=== PATIENT | female | born 1955 | race Caucasian/White ===

== ENCOUNTER 2021-01-09 15:46 | Emergency (ER) | payer SELFPAY ==
[2021-01-09 15:57] VITALS: BP 143/87; PULSE 100; RESP 16; TEMP 37.1; O2SAT 99
--- NOTE | 2021-01-09 16:25 | ED.WOUNDLAC ---
HPI - Wound/Laceration General Chief Complaint: Burn/Smoke Inhalation Stated Complaint: blister on right 2nd/3rd finger Time Seen by Provider: 01/09/21 16:37 Source: patient and RN notes reviewed Mode of arrival: ambulatory Limitations: no limitations History of Present Illness HPI narrative: 65-year-old female presents concern for secondary sigala to the second and third digits of the right hand. Reports on Sunday she was cooking with boiling water when she spilled boiling water on her hand. Reports a blister to each digit. Reports she has been using Neosporin. She denies decreased sensation, strength of the digits. Denies any red streaking, increasing redness. Denies fever or body aches. Extremity Location: Right: hand Related Data Allergies Allergy/AdvReac Type Severity Reaction Status Date / Time acetaminophen AdvReac Intermediate NAUSEA Verified 11/23/17 16:36 codeine AdvReac Intermediate NAUSEA Verified 11/23/17 16:36 Review of Systems Review of Systems: CONSTITUTIONAL: Denies malaise, chills, sweats, or fever. SKIN: Reports sigala to the second and third digits of the right hand MUSCULOSKELETAL: Denies musculoskeletal pain or myalgia. NEUROLOGIC: Denies numbness, weakness All systems reviewed & are unremarkable except as noted in HPI and below PMFSH Comments At time of signature, agree with nursing past medical, surgical, social and family history. There is no relevant family history pertinent to the presenting complaint Exam Narrative: GENERAL: Well-appearing, well-nourished, and in no acute distress. HEAD: Normocephalic, atraumatic. EYES: PERRLA, conjunctivae clear ENT: Mucous membranes moist. NECK: Supple. No lymphadenopathy CHEST: Clear to auscultation. No respiratory distress. HEART: Regular rate and rhythm. SKIN: Warm, dry. Dorsal aspect of digits 2 and 3 from the PIP to the DIP joint erythematous, an intact fluid-filled blister noted to the dorsal aspect of digit to approximately 3 cm x 2 cm, an intact blister on dorsal aspect of digit 3 approximately 2 cm x 1 cm NEURO: Alert and oriented x3. PSYCH: Normal mood and affect Course Course Emergency Course: Patient is aware of diagnosis, understands and agrees to treatment plan. Anticipatory guidance given. Patient agrees to follow-up as directed and is aware of reasons to seek care at the emergency department. Portions of this record may have been created with voice recognition software Vital Signs Vital signs: Vital Signs Temperature 98.8 F 01/09/21 15:57 Pulse Rate 100 01/09/21 15:57 Respiratory Rate 16 01/09/21 15:57 Blood Pressure 143/87 H 01/09/21 15:57 Pulse Oximetry 99 01/09/21 15:57 Temperature 98.8 F 01/09/21 15:57 Pulse Rate 100 01/09/21 15:57 Respiratory Rate 16 01/09/21 15:57 Blood Pressure 143/87 H 01/09/21 15:57 Pulse Oximetry 99 01/09/21 15:57 Reviewed. MDM - Wound/Laceration MDM Narrative Medical decision making narrative: Exam findings and imaging show no acute concerns or changes; patient is non-toxic appearing and is in no distress. Patient is appropriate for outpatient treatment and follow-up. Differential Diagnosis Differential diagnosis: Likely other (First-degree burn, second-degree burn, cellulitis) Critical Care Time Critical Care Time Critical Care Time: No Discharge Plan Discharge Clinical Impression: Second degree burn Patient Disposition: Home, Self-Care Condition: Stable Instructions: Second-Degree Burn (ED) Additional Instructions: Gently wash your burn with gentle soap and water once 2 times daily and apply Silvadene cream. Cover with a clean bandage. Avoid popping the blisters, this could lead to secondary infection. If you have any urgent concerns such as red streaking up your arm, high fever or any other urgent concerns please go the emergency room. Please see list of primary care doctor so you can make an appointment to establish yourself with a primary care do
== END 2021-01-09 17:00 | disposition home or self-care (01) ==
PROVIDERS: Emergency Provider Nurse Practitioner
DX: T23.231A Burn of second degree of multiple right fingers (nail), not including thumb, initial encounter (principal); X12.XXXA Contact with other hot fluids, initial encounter; K21.9 Gastro-esophageal reflux disease without esophagitis
CPT/HCPCS: 99213; A9270; G0463